=== PATIENT | male | born 1970 | race Caucasian/White ===

== ENCOUNTER → 2023-03-04 | Outpatient (CLI) | payer OTHER ==
--- NOTE | 2023-03-04 10:36 | XR ---
EXAMINATION TYPE: XR KUB DATE OF EXAM: 03/04/2023 COMPARISON: None INDICATION: Left-sided kidney stone TECHNIQUE: Single view abdomen supine view FINDINGS: Some nonspecific small bowel gas is present in the left mid abdomen. Air is within the ascending and transverse colon Psoas margins are normal. No organomegaly is present. Scoliosis is within the lumbar spine. No suspicious renal stones are evident. There is a left hemipelvic stone spiculated measuring 1.3 cm. This would be an unusual appearance for a distal ureteral stone. IMPRESSION: 1. Nonspecific abdomen. 2. Nonspecific left hemipelvic calcification.
== END | disposition home or self-care (01) ==
LOC: RADXRMAIN 10:12
PROVIDERS: ATTEND Urology
DX: N20.1 Calculus of ureter (principal)
CPT/HCPCS: 74018

== ENCOUNTER → 2023-03-11 | Outpatient (CLI) | payer OTHER ==
[2023-03-11 20:26] LABS: Basophils # (A) 0.06 X 10*3/uL (0.00-0.10); Basophils % (A) 0.7 %; Eosinophils # (A) 0.06 X 10*3/uL (0.04-0.35); Eosinophils % (A) 0.7 %; HCT 51.6 % (39.6-50.0); HGB 16.9 g/dL (13.0-17.0); Lymphocytes # (A) 2.02 X 10*3/uL (0.90-5.00); Lymphocytes % (A) 22.3 %; MCH 29.6 pg (27.0-32.0); MCHC 32.8 g/dL (32.0-37.0); MCV 90.5 FL (80.0-97.0); Monocytes # (A) 0.44 X 10*3/uL (0.20-1.00); Monocytes % (A) 4.9 %; NRBC Per 100 WBC 0 X 10*3/uL (0.00-0.01); Neutrophils # (A) 6.45 X 10*3/uL (1.80-7.70); Neutrophils % (A) 71.1 %; Platelet Count 209 X 10*3/uL (140-440); RDW 13.3 % (11.5-14.5); WBC 9.06 X 10*3/uL (4.50-10.00)
[2023-03-11 22:13] LABS: Appearance,Urine Clear (Clear); Bilirubin,Urine Negative (Negative); Blood,Urine Moderate (Negative); Color,Urine Yellow (Yellow); Ketones,Urine Negative (Negative); Nitrite,Urine Negative (Negative); PH, Urine 5.5; Specific Gravity,Urine 1.015 (1.001-1.030); Urobilinogen,Urine 0.2 E.U./DL
[2023-03-11 22:33] LABS: Bacteria,Urine None Seen (None Seen)
[2023-03-12 01:05] LABS: Blood Urea Nitrogen 12.4 mg/dL (9.0-27.0); Carbon Dioxide 25.3 mmol/L (21.6-31.8); Chloride 104 mmol/L (96-109); Glucose 97 mg/dL (70-110); Potassium 4.9 mmol/L (3.5-5.5); Sodium 140 mmol/L (135-145)
[2023-03-12 01:06] LABS: Calcium 9.9 mg/dL (8.7-10.3)
== END | disposition home or self-care (01) ==
LOC: LABPAT 12:06
PROVIDERS: ATTEND Urology
DX: Z01.812 Encounter for preprocedural laboratory examination (principal); N20.1 Calculus of ureter
CPT/HCPCS: 80048; 81001; 85025; 87086

== ENCOUNTER → 2023-03-16 | Day surgery (SDC) | payer OTHER ==
[2023-03-11 15:53] VITALS: BMI 26.6
[~2023-03-16] MED LIST: DEXAMETHASONE SOD PHOSPHATE 4 MG/ML 1 ML VIAL IV ONE; HYDROmorphone 0.5 MG/0.5 ML SYRINGE IVP PRN; LACTATED RINGERS 1,000 ML IV SCH; MIDAZOLAM 2 MG/2 ML VIAL IVP ONE; MIDAZOLAM 2 MG/2 ML VIAL ONE; ONDANSETRON 4 MG/2 ML VIAL IVP ONE; PROPOFOL 10 MG/ML 20 ML VIAL IV ONE; fentaNYL (PF) 50 MCG/ML 2 ML AMP ONE
--- NOTE | 2023-03-16 08:27 | P.GSHP ---
History of Present Illness H&P Date: 03/16/23 53 yo male with a history of stones. For two weeks he has had some left back pain with luts. He had a ct scan that identified lt hydro due to a 9 mm distal left stoen. He came to see me. He wasnt having pain but the luts persisted. A kub showed the stone in the distal left ureter. DUe to the size, symptoms and hydro he comes for a left ureteroscopy with laser lithotripsy. Alternatives have been discussed. - Constitutional Constitutional: Denies chills, Denies fever - EENT Eyes: denies blurred vision, denies pain Ears, nose, mouth and throat: Denies headache, Denies sore throat - Cardiovascular Cardiovascular: Denies chest pain, Denies shortness of breath - Respiratory Respiratory: Denies cough, Denies 7 - Gastrointestinal Gastrointestinal: Denies abdominal pain, Denies diarrhea, Denies nausea, Denies vomiting - Genitourinary (Female) Genitourinary: Denies dysuria, Denies hematuria - Genitourinary (Male) Genitourinary: Denies dysuria, Denies hematuria - Musculoskeletal Musculoskeletal: Denies myalgias - Integumentary Integumentary: Denies pruritus, Denies rash - Neurological Neurological: Denies numbness, Denies weakness - Psychiatric Psychiatric: Denies anxiety, Denies depression - Endocrine Endocrine: Denies fatigue, Denies weight change Past Medical History Past Medical History: Osteoarthritis (OA) Additional Past Medical History / Comment(s): KIDNEY STONES. TORN LEFT ROTATOR CUFF History of Any Multi-Drug Resistant Organisms: None Reported Additional Past Surgical History / Comment(s): LITHOTRIPSY ABOUT 10 YEARS AGO Past Anesthesia/Blood Transfusion Reactions: No Reported Reaction Smoking Status: Never smoker - Past Family History Father Family Medical History: Cancer Mother Family Medical History: Cancer Medications and Allergies Home Medications Medication Instructions Recorded Confirmed Type Ibuprofen [Motrin Ib] 800 mg PO Q8H PRN 03/11/23 03/11/23 History Sertraline [Zoloft] 50 mg PO DAILY 03/11/23 03/11/23 History Tamsulosin HCl [Flomax] 0.4 mg PO DAILY 03/11/23 03/11/23 History lisinopriL [Zestril] 5 mg PO DAILY 03/11/23 03/11/23 History Allergies Allergy/AdvReac Type Severity Reaction Status Date / Time Sulfa (Sulfonamide Allergy Rash/Hives Verified 03/11/23 15:30 Antibiotics) Surgical - Exam - General well developed, well nourished, no distress - Eyes normal ocular movement, no icteric - ENT no hearing loss, no congestion - Neck no masses, trachea midline - Respiratory normal respiratory effort, clear to auscultation - Abdomen Abdomen: soft, non tender, no guarding, no rigid, no rebound - Integumentary no rash, no abnormal pigmentation - Neurologic no disoriented, no combative - Psychiatric oriented to time, oriented to person, oriented to place, speech is normal, memory intact Results - Imaging Abdominal x-ray: report reviewed, image reviewed CT scan - abdomen: report reviewed, image reviewed CT scan - pelvis: report reviewed, image reviewed Assessment and Plan Assessment: Impression: left ureteral stone with colic and obstruction Plan: left ureteroscopy with laser lithotripsy
--- NOTE | 2023-03-16 10:21 | XR ---
EXAMINATION TYPE: XR KUB DATE OF EXAM: 03/16/2023 COMPARISON: 03/04/2023 HISTORY: Left renal calculus TECHNIQUE: One view abdominal series FINDINGS: The osseous structures are intact. The bowel gas pattern is nonspecific. Left hemipelvic calcificati ons are stable. Scoliosis and degenerative changes of the spine. IMPRESSION: 1. Stable left hemipelvic calcification measuring 1.4 cm possibly within the distal left ureter near the UVJ.
--- NOTE | 2023-03-16 13:52 | P.OP ---
Date of Procedure: 03/16/23 Preoperative Diagnosis: Left ureteral calculus with obstruction Postoperative Diagnosis: Same Procedure(s) Performed: Cystoscopy, left ureteroscopy with laser lithotripsy, placement of 6 x 26 left ureteral stent Anesthesia: OLAYINKA Surgeon: Nagi Carlson Estimated Blood Loss (ml): 10 Pathology: other Condition: stable Disposition: PACU Indications for Procedure: The patient has a 13 mm left distal ureteral stone causing persistent colic and lower urinary tract symptoms. He comes for left ureteroscopy and laser lithotripsy Description of Procedure: Patient brought to the operating suite. Given a general anesthetic. Placed in lithotomy position with a sterile prep and drape. Cystoscopy Foroblique lens and 21-T[place]anian sheath identifies a normal anterior urethra. The prostatic urethra shows slight enlargement of the middle lobe. The ureteral orifices are normal bladder mucosa is unremarkable. With the 7-T[place] mini ureteroscope I passed the scope into the distal left ureter up to the stone just above the level of the ureterovesical junction. With the 370 laser probe the stone was broken into tiny pieces and flushed out of the ureter. There is a lot of edema where the stone had lodged thus a stent will be placed. I then removed the u reteroscope and reload the cystoscope. I passed an 035 wire up the ureter into the renal pelvis. Over the wires passed a 6 x 26 double-J catheter that coils in the left renal pelvis and the bladder the bladder is drained stone was collected the patient is awake and returned recovery in good condition. He tolerated the procedure well and will be discharged home upon recovery and found the office in one week.
[2023-03-16 14:11] VITALS: TEMP 97.1
[2023-03-16 14:59] VITALS: RESP 14
[2023-03-16 15:24] VITALS: BP 153/95; PULSE 59
== END | disposition home or self-care (01) ==
LOC: OR 09:52
PROVIDERS: ATTEND Urology
DX: N20.1 Calculus of ureter (principal); N20.2 Calculus of kidney with calculus of ureter; M19.90 Unspecified osteoarthritis, unspecified site; Z87.442 Personal history of urinary calculi; Z88.1 Allergy status to other antibiotic agents; Z88.2 Allergy status to sulfonamides; Z79.899 Other long term (current) drug therapy
CPT/HCPCS: 82365; 74018; 52356; C2625; C1769; J2250; J1100; J0690; J2405; J3010; J2704

== ENCOUNTER 2023-03-28 10:20 | Day surgery (SDC) | payer OTHER ==
[~2023-03-28 10:20] MED LIST changes: -DEXAMETHASONE SOD PHOSPHATE 4 MG/ML 1 ML VIAL IV ONE; -HYDROmorphone 0.5 MG/0.5 ML SYRINGE IVP PRN; +LIDOCAINE 1% (10MG/ML) FOR IV START INTRADERMA PRN; -MIDAZOLAM 2 MG/2 ML VIAL IVP ONE; -MIDAZOLAM 2 MG/2 ML VIAL ONE; -ONDANSETRON 4 MG/2 ML VIAL IVP ONE; -PROPOFOL 10 MG/ML 20 ML VIAL IV ONE; -fentaNYL (PF) 50 MCG/ML 2 ML AMP ONE
[2023-03-28 11:04] VITALS: TEMP 98.4
[2023-03-28] MEDS ORDERED: PROPOFOL 10 MG/ML 20 ML VIAL IV ONE (11:58)
--- NOTE | 2023-03-28 12:26 | P.GSHP ---
History of Present Illness H&P Date: 03/28/23 Chief Complaint: History of colon polyps -year-old male who states he has history of colon polyps. Patient presents today for colonoscopy and patient also states he is high risk because his mother and grandfather having colon cancer. Past Medical History Past Medical History: Hypertension, Osteoarthritis (OA) Additional Past Medical History / Comment(s): hx of kidney stones, torn left rotator cuff History of Any Multi-Drug Resistant Organisms: None Reported Additional Past Surgical History / Comment(s): lithotripsy with stent x2, colonoscopy Past Anesthesia/Blood Transfusion Reactions: No Reported Reaction Smoking Status: Never smoker - Past Family History Mother Family Medical History: Cancer Father Family Medical History: Cancer Medications and Allergies Home Medications Medication Instructions Recorded Confirmed Type Sertraline [Zoloft] 50 mg PO DAILY 03/11/23 03/28/23 History Tamsulosin HCl [Flomax] 0.4 mg PO DAILY 03/11/23 03/28/23 History lisinopriL [Zestril] 5 mg PO DAILY 03/11/23 03/28/23 History Ibuprofen [Motrin] 800 mg PO DIRECTED PRN 03/23/23 03/28/23 History Unk Fruit And Vegetable Suppl 1 tab PO DAILY 03/23/23 03/28/23 History Unk Testerone Inj 1 injection SQ WEEKLY 03/23/23 03/28/23 History Allergies Allergy/AdvReac Type Severity Reaction Status Date / Time Sulfa (Sulfonamide Allergy Rash/Hives Verified 03/28/23 10:29 Antibiotics) Surgical - Exam Vital Signs Temp Pulse Resp BP Pulse Ox 98.4 F 78 14 139/93 96 03/28/23 10:34 03/28/23 10:34 03/28/23 10:34 03/28/23 10:34 03/28/23 10:34 - General well developed, well nourished, no distress - Eyes PERRL - ENT normal pinna, normal nares - Neck no masses - Respiratory normal expansion - Cardiovascular Rhythm: regular - Abdomen Abdomen: soft, non tender Assessment and Plan Assessment: History of colon polyps. Will perform colonoscopy.
--- NOTE | 2023-03-28 12:44 | P.OP ---
Date of Procedure: 03/28/23 Preoperative Diagnosis: History of colon polyps Postoperative Diagnosis: Kalosis Left colon polyp Colon biopsy pathology pending Procedure(s) Performed: colonoscopy Anesthesia: MAC Surgeon: Nelson Osorio Pathology: other (Colon polyp, left colon biopsy) Condition: stable Disposition: PACU Description of Procedure: Patient was placed on the endoscopy table in the lateral position. He received IV sedation. Digital rectal exam was performed. This revealed no abnormalities. The prostate was symmetrical without nodules. The flexible colonoscope was then placed the patient anus and passed throughout the entire colon. The ileocecal valve was visualized. The cecum, ascending and transverse colon appeared normal. In the descending colon there was scattered diverticuli. There was a small sessile polyp seen in this removed with a cold forcep. There was also an area of inflammation. This was biopsied. Scope was brought back to the sigmoid colon and further diverticular changes were seen. The scope was ever back to rectum and this appeared normal. The scope withdrawn for the patient.
[2023-03-28 12:56] VITALS: PULSE 68; RESP 16
[2023-03-28 13:23] VITALS: BP 126/86
== END 2023-03-28 13:34 | disposition home or self-care (01) ==
LOC: ORWHC2ENDO 10:20
PROVIDERS: ATTEND Surgery
DX: Z12.11 Encounter for screening for malignant neoplasm of colon (principal); K63.5 Polyp of colon; I10 Essential (primary) hypertension; E78.5 Hyperlipidemia, unspecified; G47.33 Obstructive sleep apnea (adult) (pediatric); F41.9 Anxiety disorder, unspecified; K21.9 Gastro-esophageal reflux disease without esophagitis; M19.90 Unspecified osteoarthritis, unspecified site; Z87.442 Personal history of urinary calculi; Z86.010 Personal history of colon polyps; Z88.2 Allergy status to sulfonamides; Z79.899 Other long term (current) drug therapy
CPT/HCPCS: 88305; 45380; J2704